=== PATIENT | male | born 1960 | race Caucasian/White ===

== ENCOUNTER 2017-01-19 11:19 | Emergency (ER) | payer BC ==
[~2017-01-19] VITALS: Ht 177.8 cm; Wt 121.8 kg
[2017-01-19 11:30] VITALS: TEMP 36.9; Ht 177.8 cm; Wt 121.8 kg
[2017-01-19] MEDS ORDERED: SODIUM CHLORIDE 0.9% 1000ML 1,000 ML IV STA (11:41)
[2017-01-19] MEDS ORDERED: KETOROLAC TROMETHAMINE 30 MG/ML VIAL IV STA (11:41)
[2017-01-19] MEDS ORDERED: CEFTRIAXONE SOD INJ 1 GM ADDVIAL IV STA (11:41)
[2017-01-19] MEDS ORDERED: SULFAMETHOXAZOLE/TRIMETHOPRIM DS 800/160MG TAB PO STA (11:41)
[2017-01-19] MEDS ORDERED: MONT1TAB3 PO (11:46)
[2017-01-19] MEDS ORDERED: ASTIN/15 (11:46)
[2017-01-19] MEDS ORDERED: ATEN50TA8 PO (11:46)
--- NOTE | 2017-01-19 12:14 | DIAGNOSTIC IMAGING REPORT ---
RIGHT HAND MIN 3 VIEWS ROUTINE CLINICAL HISTORY: Right hand pain COMPARISON: None. DISCUSSION: No fractures or dislocations are visualized. There are no erosive or destructive changes. There is dorsal soft tissue swelling. IMPRESSION: Soft tissue swelling. No fractures are visualized. Electronically signed by: Daren Casas M.D. 01/19/2017 12:12 PM Dictated Date/Time: 01/19/2017 12:11 PM
[2017-01-19 12:15] LABS: BASO % 0.1 %; BASO ABS # 0.01 K/uL (0-0.2); COMPLETE YES; EOS % 0.6 %; HEMATOCRIT 41.2 % (42-52); IG% 0.2 %; LYMPH % 17.5 %; LYMPH ABS # 2.29 K/uL (1.2-3.4); MEAN CELL VOLUME 86.9 fL (80-100); MEAN CORPUSCULAR HEMOGLOBIN 30.2 pg (25-34); MEAN CORPUSCULAR HGB CONC 34.7 g/dl (32-36); MEAN PLATELET VOLUME 10.1 fL (7.4-10.4); MONO % 10.7 %; NEUT % 70.9 %; PLATELET COUNT 226 K/uL (130-400); RED BLOOD COUNT 4.74 M/uL (4.7-6.1); WHITE BLOOD COUNT 13.09 K/uL (4.8-10.8)
[2017-01-19 12:27] LABS: BUN/CREATININE RATIO 18.2 (10-20); POTASSIUM 4.1 mmol/L (3.5-5.1)
[2017-01-19 12:30] LABS: CALCIUM 9.4 mg/dl (8.5-10.1)
[2017-01-19 13:30] VITALS: BP 138/82; PULSE 69; O2SAT 98
[2017-01-19] MEDS ORDERED: SULF800T23 PO (13:40)
[2017-01-19] MEDS ORDERED: CEPH500C PO (13:40)
--- NOTE | 2017-01-19 13:59 | EMERGENCY ROOM VISIT NOTE ---
History Report prepared by Hemalatha: Shayna Mcgowan Under the Supervision of: Dr. Yao Wakefield M.D. First contact with patient: 11:35 Chief Complaint: HAND PAIN/INJURY Stated Complaint: RIGHT HAND SWELLING History of Present Illness The patient is a 56 year old male who presents to the Emergency Room with complaints of worsening right hand swelling starting 2 days ago. He noticed that his hand was red and swollen 2 days ago. He could not recall any injury. Since then the hand has become painful and increasingly swollen on the knuckles. He believes that his tetanus is up to date. Source of History: patient Onset: 2 days ago Position: hand (right) Quality: other (swelling) Timing: worsening Note: Pt reports hand pain and redness. Review of Systems See HPI for pertinent positives & negatives. A total of 10 systems reviewed and were otherwise negative. Family History No pertinent family history stated. Social History Smoking Status: Never Smoker Marital Status: Housing Status: lives with family Occupation Status: employed Current/Historical Medications Scheduled Atenolol (Tenormin), 50 MG PO HS Cephalexin Monohydrate (Keflex), 1 CAP PO QID Montelukast Sodium (Singulair), 10 MG PO HS Sulfa/Trimethoprim (Bactrim Ds 800MG/160MG), 1 TAB PO BID Miscellaneous Medications Azelastine HCl (Astepro) Allergies Coded Allergies: No Known Allergies (Unverified , 01/19/17) Physical Exam Vital Signs Date Time Temp Pulse Resp B/P Pulse Ox O2 Delivery O2 Flow Rate FiO2 01/19/17 13:30 69 20 138/82 98 Room Air 01/19/17 11:30 36.9 68 18 147/79 96 Room Air Physical Exam GENERAL: Patient is a healthy-appearing well-nourished HEAD: Normocephalic atraumatic EYES: Ocular movements intact pupils equal and react to light OROPHARYNX mucous membranes are moist no exudates present no erythema or edema present NECK: Supple no nuchal rigidity CHEST: Good equal expansion LUNGS: Clear and equal to auscultation CARDIAC: Normal S1 and S2 ABDOMEN: Soft nontender no guarding BACK: No CVA tenderness EXTREMITIES: Swelling to the dorsum of hand centered around the 4th and 5th metacarpal. Able to extend fingers free from pain, able to form fist free from pain. No streaking present. NEURO: Patient is following commands is answering questions appropriately. Alert and oriented x3 Cranial Nerves 2-12 grossly intact Medical Decision & Procedures ER Provider Diagnostic Interpretation: X-ray results as stated below per interpretation by me and the radiologist: RIGHT HAND MIN 3 VIEWS ROUTINE CLINICAL HISTORY: Right hand pain COMPARISON: None. DISCUSSION: No fractures or dislocations are visualized. There are no erosive or destructive changes. There is dorsal soft tissue swelling. IMPRESSION: Soft tissue swelling. No fractures are visualized. Electronically signed by: Daren Casas M.D. 01/19/2017 12:12 PM Dictated Date/Time: 01/19/2017 12:11 PM Laboratory Results 01/19/17 12:00 Red Blood Count 4.74, Mean Corpuscular Volume 86.9, Mean Corpuscular Hemoglobin 30.2, Mean Corpuscular Hemoglobin Concent 34.7, Mean Platelet Volume 10.1, Neutrophils (%) (Auto) 70.9, Lymphocytes (%) (Auto) 17.5, Monocytes (%) (Auto) 10.7, Eosinophils (%) (Auto) 0.6, Basophils (%) (Auto) 0.1, Neutrophils # (Auto ) 9.28, Lymphocytes # (Auto) 2.29, Monocytes # (Auto) 1.40, Eosinophils # (Auto ) 0.08, Basophils # (Auto) 0.01 01/19/17 12:00 Test 01/19/17 12:00 White Blood Count 13.09 K/uL (4.8-10.8) Red Blood Count 4.74 M/uL (4.7-6.1) Hemoglobin 14.3 g/dL (14.0-18.0) Hematocrit 41.2 % (42-52) Mean Corpuscular Volume 86.9 fL (80-100) Mean Corpuscular Hemoglobin 30.2 pg (25-34) Mean Corpuscular Hemoglobin Concent 34.7 g/dl (32-36) Platelet Count 226 K/uL (130-400) Mean Platelet Volume 10.1 fL (7.4-10.4) Neutrophils (%) (Auto) 70.9 % Lymphocytes (%) (Auto) 17.5 % Monocytes (%) (Auto) 10.7 % Eosinophils (%) (Auto) 0.6 % Basophils (%) (Auto) 0.1 % Neutrophils # (Auto) 9.28 K/uL (1.4-6.5) Lymphocytes # (Auto) 2.29 K/uL (1.2-3.4) Monocytes # (Auto) 1.40 K/uL (0.11-0.59) Eosinophils # (Auto) 0.08 K/uL (0-0.5) Basophils # (Auto) 0.01 K/uL (0-0.2) RDW Standard Deviation 43.2 fL (36.4-46.3) RDW Coefficient of Variation 13.5 % (11.5-14.5) Immature Granulocyte % (Auto) 0.2 % Immature Granulocyte # (Auto) 0.03 K/uL (0.00-0.02) Anion Gap 8.0 mmol/L (3-11) Est Creatinine Clear Calc Drug Dose 107.9 ml/min Estimated GFR () 97.1 Estimated GFR (Non- 83.8 BUN/Creatinine Ratio 18.2 (10-20) Calcium Level 9.4 mg/dl (8.5-10.1) Labs reviewed by ED physician. Medications Administered Medications (Trade) Dose Ordered Sig/Param Route Start Time Stop Time Status Last Admin Dose Admin Ceftriaxone Sodium (Rocephin Inj) 1 gm NOW STAT IV 01/19/17 11:41 01/19/17 11:46 DC 01/19/17 12:42 1 GM Trimethoprim/ Sulfamethoxazole (Septra Ds 800/ 160MG Tab) 1 tab NOW STAT PO 01/19/17 11:41 01/19/17 11:46 DC 01/19/17 12:42 1 TAB Ketorolac Tromethamine 30 mg 30 mg NOW STAT IV 01/19/17 11:41 01/19/17 11:46 DC 01/19/17 12:42 30 MG Sodium Chloride (Nss 1000ml) 1,000 ml @ 999 mls/hr Q1H1M STAT IV 01/19/17 11:41 01/19/17 12:41 DC 01/19/17 12:41 999 MLS/HR ED Course 1136: Past medical records reviewed. The patient was evaluated in room B2. A complete history and physical examination was performed. 1141: NSS 1000 ml @ 999 mls/hr IV, Toradol Inj 30 mg IV, Trimethoprim/ Sulfamethoxazole 1 tab PO, Rocephin Inj 1 gm IV. 1345: Upon reexamination the patient is resting comfortably. I discussed results and treatment plan with the patient. He verbalizes agreement and understanding. The patient is ready for discharge. Medical Decision Differential diagnosis: Etiologies such as cellulitis, abscess, MRSA infection, DVT, necrotizing fasciitis, dermatitis, drug eruption, as well as others were entertained. This is a 56-year-old male who presents emergency department complaining of dorsum of the right hand swelling. The patient has good range of motion of his fingers free from pain. Due to the nature the patient's swelling he was started on IV antibiotics including Rocephin and was given Bactrim. He does have slight elevation in his white blood count of 13. Based on these findings and felt the patient can be safely discharged home for follow-up with his primary care physician. Patient was in agreement with the treatment plan. Impression Primary Impression: Cellulitis Scribe Attestation The scribe's documentation has been prepared under my direction and personally reviewed by me in its entirety. I confirm that the note above accurately reflects all work, treatment, procedures, and medical decision making performed by me. Departure Information Dispostion Home / Self-Care Prescriptions Sulfa/Trimethoprim (Bactrim Ds 800MG/160MG) Tab 1 TAB PO BID for 10 Days, #20 TAB Prov: Yao Wakefield MD 01/19/17 Cephalexin Monohydrate (Keflex) 500 Mg Cap 1 CAP PO QID for 10 Days, #40 CAP Prov: Yao Wakefield MD 01/19/17 Referrals No Doctor, Assigned (PCP) Forms HOME CARE DOCUMENTATION FORM, IMPORTANT VISIT INFORMATION Patient Instructions Cellulitis - [facility], [facility] Additional Instructions You have been examined and treated today on an emergency basis only. This is not a substitute for, or an effort to provide, complete comprehensive medical care. It is impossible to recognize and treat all injuries or illnesses in a single emergency department visit. It is therefore important that you follow up closely with your PCP. Call as soon as possible for an appointment. Thank you for your time and consideration. I look forward to speaking with you again soon. Please don't hesitate to call us if you have any questions. Problem Qualifiers Primary Impression: Cellulitis Site of cellulitis: extremity Site of cellulitis of extremity: upper extremity Laterality: right Qualified Codes: L03.113 - Cellulitis of right upper limb
== END 2017-01-19 14:00 | disposition home or self-care (01) ==
LOC: C.EDB 11:22
DX: L03.113 Cellulitis of right upper limb (principal); Z79.899 Other long term (current) drug therapy